=== PATIENT | male | born 1985 | race Two or more races ===

== ENCOUNTER 2024-07-28 05:59 | Emergency (ER) | payer MEDICAID, SELFPAY ==
[2024-07-28 06:00] VITALS: BMI 26.6
[2024-07-28 06:07] VITALS: BP 112/71; PULSE 71; RESP 18; TEMP 36.4; O2SAT 97
--- NOTE | 2024-07-28 06:19 | XR_ITS ---
Examination: CT abdomen and pelvis without contrast. Coronal 3-D reconstructions. Sagittal 2-D reconstructions. Date and time of exam:July 20, 2024 0632 hrs. Indications: Left lower abdomen pain beginning 3 weeks ago CTDI: vol (mGy): 7.64 DLP: (mGycm): 443 Technique: Axial images of the abdomen have been obtained, 3 mm slice thickness Intravenous contrast material has not been administered. Low dose protocols were performed. One or more of the following dose reduction techniques were used; automated exposure control, adjustment of the mA and/or KV according to patient size, use of iterative reconstruction technique. Findings: No focal liver or splenic lesions No gallstones No pancreatic or adrenal mass No renal or ureteral calculi, no hydronephrosis Aorta normal size 24 mm umbilical hernia containing possible incarcerated fat Small lymph nodes in the right lower mesentery Normal appendix No bowel obstruction Contracted urinary bladder, urinary bladder wall thickening to 6 mm No prostatomegaly The osseous structures are intact Impression: 24 mm umbilical hernia containing possible incarcerated fat No bowel present in this hernia defect Normal appendix Mild thickening of the urinary bladder wall, clinical correlation advised
--- NOTE | 2024-07-28 06:24 | EDNOTE_ITS ---
ED Abdominal Pain RME/HPI General Chief Complaint: Abdominal Pain Stated complaint: LLQ PAIN Time seen by provider: 07/28/24 06:24 Arrival date/time: 07/28/24 05:59 39-year-old male with no known medical history presents to the emergency room with a chief complaint of left lower quadrant abdominal pain that radiates to the left flank x 2 days Source: patient Mode of arrival: ambulatory Limitations: no limitations Related Data Home Medications ?Medication ?Instructions ?Recorded ?Confirmed naproxen 500 mg tablet (Naprosyn) 500 mg PO BIDWM #0 t abs 12/15/16 Previous Rx's ?Medication ?Instructions ?Recorded Cyclobenzaprine * (FLEXERIL *) 10 mg PO Q8HR PRN spasm #15 tabs 12/15/16 Allergies Allergy/AdvReac Type Severity Reaction Status Date / Time No Known Allergies Allergy Verified 04/16/18 15:05 Review of Systems Review of Systems Systems Reviewed: All systems reviewed, normal except as documented Constitutional Constitutional: Reports system reviewed and no additional complaints, except as documented, Denies fatigue, Denies fever(s), Denies headache(s) and Denies weakness Eyes Eyes: Reports system reviewed and no additional complaints, except as documented, Denies blurry vision and Denies change in vision ENT Ears, Nose, Mouth, and Throat: Reports system reviewed and no additional complaints, except as documented, Denies otalgia, Denies headache(s), Denies nasal congestion, Denies throat swelling and Denies vertigo Cardiovascular Cardiovascular: Reports system reviewed and no additional complaints, except as documented, Denies chest pain, Denies dyspnea and Denies dyspnea on exertion Respiratory Respiratory: Reports system reviewed and no additional complaints, except as documented, Denies chest congestion, Denies cough, Denies dyspnea, Denies dyspn ea on exertion and Denies wheezing Gastrointestinal Gastrointestinal: Reports system reviewed and no additional complaints, except as documented, Reports abdominal pain, Reports cramping, Reports nausea and Denies vomiting Genitourinary Genitourinary: Reports system reviewed and no additional complaints, except as documented, Denies dysuria and Denies hematuria Musculoskeletal Musculoskeletal: Reports system reviewed and no additional complaints, except as documented and Denies back pain Integumentary/Breasts Skin/Breast: Reports system reviewed and no additional complaints, except as documented and Denies wounds Neurologic Neurologic: Reports system reviewed and no additional complaints, except as documented, Denies confusion, Denies headache(s), Denies lack of coordination, Denies vertigo and Denies weakness Psychiatric Psychiatric: Reports system reviewed and no additional complaints, except as documented, Denies anxiety, Denies confusion, Denies depression, Denies paranoia, Denies suicidal ideation and Denies tactile hallucinations Endocrine Endocrine: Reports system reviewed and no additional complaints, except as documented and Denies fatigue Hematologic/Lymphatic Hematologic/Lymphatic: Reports system reviewed and no additional complaints, except as documented and Denies lymphadenopathy Allergic/Immunologic Allergic/Immunologic: Reports system reviewed and no additional complaints, except as documented, Denies throat swelling, Denies urticaria and Denies wheezing ED Exam General Limitations: Present no limitations General appearance: Present alert and in no apparent distress Head Head exam: Present atraumatic Eye Eye exam: Present normal appearance, PERRL and EOMI ENT ENT exam: Present normal exam, normal oropharynx and mucous membranes moist Neck Neck exam: Present normal inspection, full ROM and trachea midline Chest Chest inspection: Present normal inspection and symmetric chest wall rise Respiratory Respiratory exam: Present normal lung sounds bilaterally Cardiovascular Cardiovascular exam: Present regular rate, normal rhythm and normal heart sounds Abdominal Exam Abdominal exam: Present soft, tenderness and normal bowel sounds Abdominal tenderness: Present LLQ and mild Extremities Exam Extremities exam: Present normal inspection and full ROM Back Exam Back exam: Present normal inspection and full ROM Neurological Exam Neurological exam: Present alert, oriented X3 and CN II-XII intact Psychiatric Psychiatric exam: Present normal affect and normal mood Skin Skin exam: Present warm, dry, intact and normal color Course Quality Measures none Orders Category Date Time Status CT abdomen pelvis wo con Stat Exams 07/28/24 06:19 Completed CBC Stat Lab 07/28/24 07:18 Completed CMP [Comprehensive Metabolic Panel] Stat Lab 07/28/24 07:18 Completed Lipase Stat Lab 07/28/24 07:18 Completed UA [Urinalysis] Stat Lab 07/28/24 07:08 Completed Urine Culture Stat Lab 07/28/24 07:08 Received Vital Signs Vital signs: Vital Signs Temperature 97.6 F 07/28/24 06:07 Pulse Rate 71 07/28/24 06:07 Respiratory Rate 18 07/28/24 06:07 Blood Pressure 112/71 07/28/24 06:07 Pulse Oximetry (%) 97 07/28/24 06:07 Oxygen Delivery Method Room Air 07/28/24 06:07 O2 saturation 97% within normal limits Abdominal Pain MDM MDM Narrative MDM Narrative:: 39-year-old male with no known medical history presents to the emergency room with a chief complaint of left lower quadrant abdominal pain that radiates to the left flank x 2 days Patient is hemodynamically stable and in no apparent distress Physical examination shows left lower quadrant abdominal pain and tenderness that radiates to the umbilical area. CT of the abdomen and pelvis was completed and the patient has a 24 mm umbilical hernia containing some possible incarcerated fat but there is no bowel present in this hernia defect. CBC CMP and UA were negative for any acute findings Patient was discharged and educated to follow-up with primary care provider and return to the emergency room for any evidence of worsening signs or symptoms Patient data External records reviewed:: [facility] previous records Clinical information provided by:: patient Social determinants that could affect healthcare access:: none Patient has the following chronic illnesses:: No chronic illness How is presenting disease/condition affected by chronic disease/condition?: no chronic disease Evaluation data The following diagnostics were reviewed and interpreted by me:: lab results and radiology exam(s) Lab and/or radiology exams considered but not ordered:: Labs and radiology exams considered and ordered Interpretation Summary: CT abdomen and pelvis-Findings: No focal liver or splenic lesions No gallstones No pancreatic or adrenal mass No renal or ureteral calculi, no hydronephrosis Aorta normal size 24 mm umbilical hernia containing possible incarcerated fat Small lymph nodes in the right lower mesentery Normal appendix No bowel obstruction Contracted urinary bladder, urinary bladder wall thickening to 6 mm No prostatomegaly The osseous structures are intact Impression: 24 mm umbilical hernia containing possible incarcerated fat No bowel present in this hernia defect Normal appendix Mild thickening of the urinary bladder wall, clinical correlation advised Medications / Prescriptions Medications or Prescriptions considered but not ordered:: No medication given Medication administrations:: No medication given Consultations Consultation(s) initiated? (list below): No Diagnosis Differential diagnosis abdominal pain: abdominal pain, diverticulitis, gastroenteritis, small bowel obstruction and other (Diverticulitis/umbilical hernia) Most likely diagnosis given after review of the tests above:: Umbilical hernia Admission Indicated Admission indicated?: not indicated Admission Request Was there a request for admission?: No Disposition Plan Disposition Plan: Discharge Discharge Attestation Discharge Attestation: The patient and all family members were given an opportunity to ask questions and understood the discharge instructions. Discharge instructions specifically effects, indications for sooner follow up or return to the emergency department, and the expected course of current diagnosis. Patient condition: Stable Discharge Plan Plan Patient Disposition: HOME (Self Care) Disposition Comment: Stable Prescriptions/Referrals Prescriptions/Med Rec: No Action naproxen [Naprosyn] 500 MG tablet 500 mg PO BIDWM Qty: 0 Patient Comments: PRN PAIN Cyclobenzaprine * (FLEXERIL *) 10 MG tablet 10 mg PO Q8HR PRN (Reason: spasm) Qty: 15 0RF Referrals: Mario Thompson MD [Primary Care Provider] - In 1 week Problem List Clinical Impression: Hernia, umbilical Patient/Caregiver Discharge Instructions Education Materials: ED Hernia (Adult) Additional Instructions: Segundo un seguimiento con gee proveedor de atenci?n primaria en las pr?ximas 24 a 48 horas. Tienes chele hernia umbilical. Segundo un seguimiento con gee proveedor de atenci?n primaria para derivarlo a un cirujano general ambulatorio para solucionar emma problema. Si hay evidencia de signos o s?ntomas que empeoran, regrese a la edward de emergencias de inmediato. Print Language: Citizen Of [place] Stand Alone Forms: Amberly Award Info., Patient Portal Info Letter PA/PHYSICAL CHEMISTRY PROFESSOR Supervising Physician PA/PHYSICAL CHEMISTRY PROFESSOR Supervising Physician: Dr. Perez
[2024-07-28 07:25] LABS: Collection Type, Urine Clean Catch; RBC,Urine 0 /hpf (0-3)
[2024-07-28 07:35] LABS: Basophils % (Auto) 0 % (0-2.5); Eosinophils # (Auto) 0.3 Thou/mm3 (0.0-0.5); Eosinophils % (Auto) 5 % (0-10); Hematocrit 44.4 % (41.0-53.0); Hemoglobin 15.6 g/dL (13.5-16.0); Immature Granulocytes % (Auto) 1 % (0-0); Immature Granulocytes Auto 0.03 Thou/mm3 (0.00-0.00); Lymphocytes # (Auto) 2.2 Thou/mm3 (1.0-4.8); Lymphocytes % (Auto) 35 % (10-50); Mean Corpuscular HGB Conc 35.1 g/dl (31.0-37.0); Mean Corpuscular Hemoglobin 28.7 pg (25.0-35.0); Mean Corpuscular Volume 82 fL (80-100); Monocytes # (Auto) 0.7 Thou/mm3 (0.0-0.8); Monocytes % (Auto) 10 % (0-12); Neutrophils # (Auto) 3.2 Thou/mm3 (1.8-7.7); Neutrophils % (Auto) 49 % (37-80); Nucleated Red Blood Cell % 0 /100 WBC (0); Platelet Count 307 Thou/mm3 (140-440); RDW Standard Deviation 42.7 fL (35.1-43.9); Red Blood Count 5.44 Miln/mm3 (4.50-5.90); White Blood Count 6.5 Thou/mm3 (3.8-10.6)
[2024-07-28 07:46] LABS: Alanine Aminotransferase 29 U/L (10-49); Albumin, Serum 4.4 gm/dL (3.5-5.0); Albumin/Globulin Ratio 1.7 (1.2-2.2); Alkaline Phosphatase 67 U/L (46-116); Anion Gap 7 (7-16); Aspartate Amino Transferase 19 U/L (0-34); BUN/Creatinine Ratio 16 Ratio (12-20); Bilirubin,Total 1.2 mg/dL (0.3-1.2); Blood Urea Nitrogen 13 mg/dL (9-23); Calcium 9.3 mg/dL (8.3-10.6); Calcium (Corrected) 9.3 mg/dL (8.5-10.1); Chloride 104 mMol/L (98-107); Creatinine (Component) 0.8 mg/dL (0.6-1.3); Estimated Creatinine Clearance 118.2 mL/min (>60); Globulin 2.6 gm/dL (2.3-3.5); Glucose 98 mg/dL (74-106); Lipase 38 U/L (12-53); Osmolality,Calculated 281 (275-295); Potassium 4.3 mMol/L (3.4-5.1); Sodium 141 mMol/L (136-145); eGFR > 60 See Note
[2024-07-28 07:55] LABS: Amorphous Crystals,Urine Present (Absent); Bilirubin,Urine Negative (Negative); Blood,Urine Negative (Negative); Clarity,Urine Clear (Clear/Hazy); Color,Urine Yellow (Lt Yel-Yel); Glucose, Urine Negative (Negative); Ketones,Urine Negative (Negative); Leukocyte Esterase,Urine Negative (Negative); Nitrite,Urine Negative (Negative); Protein,Urine Trace (Neg - Trace); Specific Gravity,Urine 1.031 (1.001-1.035); Squamous Epithelial Cell,Urine < 1 /hpf (0-5); Urobilinogen,Urine Negative mg/dL (0.0-1.0); WBC,Urine < 1 /hpf (0-5)
--- NOTE | 2024-07-28 08:12 | PC.NURSE ---
called lab to release cbc and ua
[2024-07-28 08:39] VITALS: BP 111/74; PULSE 71; RESP 16; TEMP 36.6; O2SAT 97
== END 2024-07-28 09:01 | disposition home or self-care (01) ==
PROVIDERS: Nurse Practitioner Family; Emergency Provider Emergency Medicine; PCP Family Medicine
DX: K42.9 Umbilical hernia without obstruction or gangrene (principal)
CPT/HCPCS: 36415; 74176; 80053; 81001; 83690; 85025; 87086; 99284

== ENCOUNTER → 2024-09-29 | Outpatient (CLI) | payer OTHER, SELFPAY ==
--- NOTE | 2024-09-29 15:36 | XR_ITS ---
Examination: Lumbar spine, 5 views Technique: Lumbar spine AP, lateral, coned lateral lower lumbar spine, bilateral obliques 5 views Exam date and time: September 29, 2024 at 1554 hours INDICATIONS: Patient fell September 23, 2024 with injury to lower back, lower back pain. FINDINGS: Adequate alignment lumbar vertebral bodies on the lateral view No acute lumbar fracture. Mild lumbar spondylosis Mild diffuse lumbar disc narrowing IMPRESSION: No lumbar fracture
== END | disposition home or self-care (01) ==
PROVIDERS: PCP Physician Assistant; Referring Provider Physician Assistant; Visit Provider Physician Assistant
DX: S39.92XA Unspecified injury of lower back, initial encounter (principal); W19.XXXA Unspecified fall, initial encounter
CPT/HCPCS: 72110

== ENCOUNTER → 2025-02-23 | Outpatient (CLI) | payer OTHER, SELFPAY ==
--- NOTE | 2025-02-23 16:30 | XR_ITS ---
Examination: MRI lumbar spine without contrast Date and time of exam: February 23, 2025 , 1718 hrs. Indications: Lower back pain and burning sensation radiating to the right leg and foot after falling 5 months ago Technique: Multiple MRI axial and sagittal sections lumbar spine. Sagittal T2-weighted images, TR 3500, TE 118 T1 weighted transverse sections, TR 688 T8.5, T2-weighted sagittal sections T1 weighted sagittal sections TR 621, TE 30 T2 axial sections, TR 4, 190, TE 84. Findings: Satisfactory alignment lumbar vertebral bodies No lumbar fracture Disc desiccation at the lower 3 lumbar levels No significant lumbar disc narrowing No spondylolisthesis L5-S1 2 mm right paracentral subarticular disc bulge with annular disc tear, axial image 1 More cephalad levels unremarkable Impression: L5-S1 2 mm right paracentral subarticular disc bulge with annular disc tear,, the annular disc tear could produce severe back pain
== END | disposition home or self-care (01) ==
LOC: SMRI 16:09
PROVIDERS: PCP Family Medicine; Referring Provider Physician Assistant; Visit Provider Physician Assistant
DX: M51.370 Other intervertebral disc degeneration, lumbosacral region with discogenic back pain only (principal); S39.012S Strain of muscle, fascia and tendon of lower back, sequela; W19.XXXS Unspecified fall, sequela
CPT/HCPCS: 72148